=== PATIENT | female | born 1995 | race Two or more races ===

== ENCOUNTER 2023-04-27 13:51 | Emergency (ER) | payer OTHER ==
[~2023-04-27] VITALS: Ht 157.5 cm; Wt 73.9 kg
[2023-04-27 15:35] LABS: HEMATOCRIT 38.9 % (36.0-45.00); HEMOGLOBIN 13.8 g/dL (12.0-15.00); MEAN CELL VOLUME 86.6 fL (80.00-100.00); MEAN CORPUSCULAR HEMOGLOBIN 30.7 pg (27.00-32.0); MEAN CORPUSCULAR HGB CONC 35.4 g/dl (32.0-36.0); PLATELET COUNT 280 K/uL (150-450); RED CELL DISTRIBUTION WIDTH 12.7 % (11.5-14.5)
[2023-04-27 15:59] LABS: INR 1.02; PARTIAL THROMBOPLASTIN TIME 27.1 SECONDS (22.0-34.0); PROTHROMBIN TIME 10.7 SECONDS (9.0-11.5)
[2023-04-27 16:04] LABS: ALBUMIN 3.9 gm/dL (3.4-5.0); BILIRUBIN TOTAL 0.9 mg/dL (0.3-1.2); CREATININE SERUM 0.75 mg/dL (0.55-1.02); GFR 93.41; GLOBULINA 3.1 G/DL (2.4-3.5); POTASSIUM 4.19 mEq/L (3.5-5.1)
== END 2023-04-27 17:04 | disposition home or self-care (01) ==
LOC: ER 13:52
PROVIDERS: General Practice
DX: O20.8 Other hemorrhage in early pregnancy (principal); N92.6 Irregular menstruation, unspecified